=== PATIENT | male | born 1990 | race Hispanic/Latino ===

== ENCOUNTER 2016-08-19 23:50 | Emergency (ER) | payer SELFPAY ==
[2016-08-20 00:29] VITALS: BP 147/98
[2016-08-20] MEDS ORDERED: NORCO 7.5/325 PO ONE (07:31)
[2016-08-20] MEDS ORDERED: TORADOL IM ONE (07:31)
[2016-08-20] MEDS ORDERED: XYLOCAINE 1% MPF 5 mL INFILTRATI ONE (08:38)
--- NOTE | 2016-08-20 08:48 | XRay Report ---
RIGHT FOOT, 3 views: History: Swelling, ingrown toenail, pain. There is moderate nonspecific soft tissue swelling of the left great toe. No soft tissue gas or foreign body is identified. There is normal bone mineralization. No fracture, bony destruction or joint pathology is appreciated. IMPRESSION: Nonspecific soft tissue swelling of the left great toe.
[2016-08-20] MEDS ORDERED: POLYSPORIN TP ONE (08:55)
[2016-08-20] MEDS ORDERED: TRIPLE ANTIBIOTIC TP ONE (09:22)
--- NOTE | 2016-08-20 09:39 | Emergency Department Report ---
Abscess Boil HPI - HPI Chief Complaint: Skin/Abscess/Foreign Body Stated Complaint: BOIL RT ARM, RIGHT GREAT TOE PAIN Duration: 3 Days Location: Upper Extremity (right forearm) History: Yes Pain, Yes Purulent Drainage, No Fever, No Numbness, No Foreign Body , No Previous History, No Insect Bite HPI: 26 year old male presents to ED with right forearm abscess (2cm) and right great toe pain. patient denies trauma to foot. patient is stable, neurologically intact and in no acute distress. Home Medications: Previous Rx's Medication Instructions Recorded Last Taken Type Fluconazole [Diflucan TAB] 100 mg PO QDAY #7 tablet 08/20/16 Unknown Rx Sulfamethoxazole/Trimethoprim 1 each PO BID #20 tablet 08/20/16 Unknown Rx [Bactrim DS TAB] Allergies/Adverse Reactions: Allergies Allergy/AdvReac Type Severity Reaction Status Date / Time No Known Allergies Allergy Verified 08/20/16 08:00 ED Review of Systems ROS: Stated complaint: BOIL RT ARM, RIGHT GREAT TOE PAIN Other details as noted in HPI Constitutional: denies: chills, fever Eyes: denies: eye pain, eye discharge, vision change ENT: denies: ear pain, throat pain Respiratory: denies: cough, shortness of breath, wheezing Cardiovascular: denies: chest pain, palpitations Endocrine: no symptoms reported Gastrointestinal: denies: abdominal pain, nausea, diarrhea Genitourinary: denies: urgency, dysuria Musculoskeletal: arthralgia (right great toe pain). denies: back pain, joint swelling Skin: other (right forearm abscess). denies: rash, lesions Neurological: denies: headache, weakness, paresthesias Psychiatric: denies: anxiety, depression Hematological/Lymphatic: denies: easy bleeding, easy bruising ED Past Medical Hx - Past Medical History Additional medical history: HEPATITIS - Medications Home Medications: Home Medications Medication Instructions Recorded Confirmed Last Taken Type Fluconazole [Diflucan TAB] 100 mg PO QDAY #7 tablet 08/20/16 Unknown Rx Sulfamethoxazole/Trimethoprim 1 each PO BID #20 tablet 08/20/16 Unknown Rx [Bactrim DS TAB] ED Abscess Boil Physical Exam - Exam General: Vital signs noted. No distress. Alert and acting appropriately. Size: 2 cm Exam: Yes Tenderness, Yes Normal Neurologic Exam, Yes Normal Circulation, No Fluctuance, No Surrounding Cellulites/Erythema, No Lymphangitis, No Crepitation , No Heart Murmur Exam: 2cm right forearm abscess present. purulent drainage present where patient attempted to I&D at home prior to ED visit. minimal swelling present over right great toe. patient has minimal discoloration of nail bed and minimal purulent drainage under lateral side nail bed. I & D Note - I & D Note I & D Note: patient right forearm prepped with betadine. 5ccs of lido without epi injected at site of abscess. moderate amount of purulent drainage obtained. patient tolerated procedure well. packing applied to inside of wound. bacitracin and gauze applied. bleeding well controlled. ED Course Vital Signs 08/20/16 08/20/16 00:20 09:28 Temperature 98.8 F Pulse Rate 110 H 84 Respiratory 18 16 Rate Blood Pressure 147/98 O2 Sat by Pulse 100 100 Oximetry Critical care attestation.: If time is entered above; I have spent that time in minutes in the direct care of this critically ill patient, excluding procedure time. ED Medical Decision Making - Radiology Data Radiology results: report reviewed XR right foot normal study per radiologist. - Medical Decision Making 26 year old male tolerated I&D well. patient will return within 2-3 days for recheck. ED Disposition Clinical Impression: Onychomycosis of left great toe, Abscess of arm, right Disposition: DC-01 TO HOME OR SELFCARE Is pt being admited?: No Does the pt Need Aspirin: No Condition: Stable Instructions: Abscess Incision and Drainage (ED) Additional Instructions: Please return to ED or urgent care within 2-3 days for I&D recheck. Prescriptions: Fluconazole [Diflucan TAB] 100 mg PO QDAY #7 tablet Sulfamethoxazole/Trimethoprim [Bactrim DS TAB] 1 each PO BID #20 tablet Referrals: AMY SALOMON MD [Staff Physician] - 3-5 Days Forms: Work/School Release Form(ED)
== END 2016-08-20 09:33 | disposition home or self-care (01) ==
LOC: ED 23:50
DX: L02.413 Cutaneous abscess of right upper limb (principal); B35.1 Tinea unguium; Z86.19 Personal history of other infectious and parasitic diseases
CPT/HCPCS: 10060; 73630; 82962; 96372; 99283; J1885; A6250

== ENCOUNTER 2016-08-23 18:16 | Emergency (ER) | payer SELFPAY ==
--- NOTE | 2016-08-23 18:44 | Emergency Department Report ---
Suture/Staple Removal - HPI Chief Complaint: Laceration/Recheck/Suture Stated Complaint: RT ARM FOLLOW UP Time Seen by Provider: 08/23/16 18:40 When Sutures or Ninole Placed: 3 Wound Location: R FA ED Review of Systems ROS: Stated complaint: RT ARM FOLLOW UP Other details as noted in HPI Comment: All other systems reviewed and negative Constitutional: denies: chills, fever Gastrointestinal: denies: abdominal pain, nausea, vomiting Musculoskeletal: other (pt states R fa pain has decreased, rates pain 4/10. ) Skin: change in color (pt states his fa was red, now skin is pink ) ED Past Medical Hx - Past Medical History Additional medical history: HEPATITIS - Surgical History Past Surgical History?: No - Social History Smoking Status: Former Smoker Substance Use Type: None - Medications Home Medications: Home Medications Medication Instructions Recorded Confirmed Last Taken Type Fluconazole [Diflucan TAB] 100 mg PO QDAY #7 tablet 08/20/16 Unknown Rx Sulfamethoxazole/Trimethoprim 1 each PO BID #20 tablet 08/20/16 Unknown Rx [Bactrim DS TAB] Cephalexin [Keflex] 500 mg PO Q6HR #40 capsule 08/23/16 Unknown Rx Suture Removal Exam - Exam General: Vital signs noted. No distress. Alert and acting appropriately. Wound: Yes Pathologic Erythema, Yes Tenderness, No Drainage, No Pus, No Wound Dehiscence Other Systems: All other systems reviewed and are unremarkable. I and D site has no packing in place. Site is ttp but no fluctuate area palpable. sounding skin has mild erythema but per pt, this is improving. ED Course Vital Signs 08/23/16 18:19 Temperature 98.4 F Pulse Rate 114 H Respiratory 18 Rate Blood Pressure 143/101 O2 Sat by Pulse 100 Oximetry - Reevaluation(s) Reevaluation #1: 08/23/16 18:43 No packing to remove. PT states his surrounding redness has decreased. Will add Keflex to cover for strep. - Pulse Oximetry Interpretation Digit-Finger Initial Pulse Oximetry Readin Actions Taken: none ED Recheck MDM - Differential Diagnosis Wound Recheck, Cellultitis Recheck, Cutananeous Abscess reche Critical Care Time: No Critical care attestation.: If time is entered above; I have spent that time in minutes in the direct care of this critically ill patient, excluding procedure time. ED Disposition Clinical Impression: Abscess of arm, right Disposition: DC-01 TO HOME OR SELFCARE Is pt being admited?: No Does the pt Need Aspirin: No Condition: Stable Instructions: Cellulitis (ED), Abscess (ED) Additional Instructions: Continue Bactrim. Warm compresses to R arm at least 4 times a day Refrain from smoking - delays healing Return to the ED in 2 days for recheck Return sooner if you develop fevers, chills, nausea, vomiting, redness streaks up your arm or your pain worsens. Prescriptions: Cephalexin [Keflex] 500 mg PO Q6HR #40 capsule Referrals: LOUIS MONTELONGO MD [Staff Physician] - 3-5 Days Time of Disposition: 18:46
[2016-08-23 18:57] VITALS: BP 127/88
== END 2016-08-23 19:06 | disposition home or self-care (01) ==
LOC: ED 18:16
DX: L02.413 Cutaneous abscess of right upper limb (principal); Z87.891 Personal history of nicotine dependence; Z86.19 Personal history of other infectious and parasitic diseases
CPT/HCPCS: 99282

== ENCOUNTER 2016-09-26 17:38 | Emergency (ER) | payer SELFPAY ==
[2016-09-26 18:09] VITALS: BP 131/71
--- NOTE | 2016-09-26 19:18 | XRay Report ---
FINAL REPORT EXAM: XR TOE(S) 2+V RT HISTORY: Injured right big toe in fall TECHNIQUE: AP, lateral, and oblique views of the right toes PRIORS: None. FINDINGS: There is no evidence for acute fracture or dislocation. Generalized soft tissue swelling of the great toe is noted. No radiopaque foreign bodies are seen. Bony mineralization is normal and joint spaces are maintained. IMPRESSION: No acute bony abnormality noted. Soft tissue swelling of the great toe.
--- NOTE | 2016-09-26 20:19 | Emergency Department Report ---
HPI - General Chief Complaint: Extremity Injury, Lower Time Seen by Provider: 09/26/16 20:07 - HPI HPI: Patient is a 26-year-old male presents to ED complaining of right fifth toe injury earlier today. Patient states he jumped out of the bed and hit his right told that he noticed some bleeding and swelling shortly afterwards she'll be to. He denies loss of sensation on the big toe. Associates mild pain with pressure applied. Denies fever/chills/ vomiting or abdominal pain Medication and allergies ED Past Medical Hx - Past Medical History Previous Medical History?: No Additional medical history: HEPATITIS - Surgical History Past Surgical History?: Yes Additional Surgical History: [place] teeth - Social History Smoking Status: Never Smoker Substance Use Type: None - Medications Home Medications: Home Medications Medication Instructions Recorded Confirmed Last Taken Type Fluconazole [Diflucan TAB] 100 mg PO QDAY #7 tablet 08/20/16 Unknown Rx Sulfamethoxazole/Trimethoprim 1 each PO BID #20 tablet 08/20/16 Unknown Rx [Bactrim DS TAB] Cephalexin [Keflex] 500 mg PO Q6HR #40 capsule 08/23/16 Unknown Rx Cyclobenzaprine [Flexeril 10 MG 10 mg PO QHS #24 tablet 09/26/16 Unknown Rx TAB] Ibuprofen [Motrin 800 MG tab] 800 mg PO TID #40 tablet 09/26/16 Unknown Rx ED Review of Systems ROS: Stated complaint: RT FOOT BIG TOE LACERATION Other details as noted in HPI Constitutional: denies: chills, fever Eyes: denies: eye pain, eye discharge, vision change ENT: denies: ear pain, throat pain Respiratory: denies: cough, shortness of breath, wheezing Cardiovascular: denies: chest pain, palpitations Endocrine: no symptoms reported Gastrointestinal: denies: abdominal pain, nausea, diarrhea Genitourinary: denies: urgency, dysuria Musculoskeletal: denies: back pain, joint swelling, arthralgia Skin: denies: rash, lesions, pruritus Neurological: denies: headache, weakness, numbness, paresthesias Psychiatric: denies: anxiety, depression Hematological/Lymphatic: denies: easy bleeding, easy bruising Physical Exam - Physical Exam Vital Signs: Vital Signs 09/26/16 18:06 Temperature 98.6 F Pulse Rate 89 Blood Pressure 131/71 O2 Sat by Pulse 100 Oximetry Physical Exam: GENERAL: Alert and oriented x3, no apparent distress, Normal Gait, atraumatic. HEAD: Head is normocephalic and a-traumatic. EYES: Extra ocular muscles are intact. Pupils are equal, round, and reactive to light and accommodation. NECK: Supple. Non edematous, No lymphadenopathy or thyromegaly. No C-spine tenderness LUNGS: Symetrical with respiration, No wheezing, no rales or crackles, CTAB. HEART: S1, S2 present, regular rate and rhythm without murmur, no rubs, no gallops. Non tender to palpation EXTREMITIES/MUSCULOSKELETAL: No cyanosis, clubbing, rash, lesions or edema. Full ROM bilaterally. UE/LE Pulses 2+ bilaterally. Right big toe is swollen, tender to palpation, erythematous, no active bleeding for range of motion no other active bleeding or lacerations. NEUROLOGIC: The patient is cooperative with no focal neurologic deficits. Cranial nerves II through XII are grossly intact. Normal speech. PSYCHIATRIC: Mood is congruent with affect, denies suicidal or homicidal ideations. SKIN: Warm and dry, No lesions, No ulceration or induration present. ED Course Vital Signs 09/26/16 18:06 Temperature 98.6 F Pulse Rate 89 Blood Pressure 131/71 O2 Sat by Pulse 100 Oximetry ED Medical Decision Making - Medical Decision Making 26-year-old male presents with right toe injury ED course. Patient received 1 tablet of [place], Motrin, Flexeril for pain X-ray of the foot obtained. X-ray shows no acute fracture noted dislocation, minimal tissue swelling Discussed findings with patient. That was soaked in Betadine and water, cleaned, applied topical triple antibiotic and sterilely draped. Discussed the patient will follow up with primary care physician in 3-5 days Vital signs are normal patient is in no acute distress. Critical care attestation.: If time is entered above; I have spent that time in minutes in the direct care of this critically ill patient, excluding procedure time. ED Disposition Clinical Impression: Injury of right great toe Qualifiers: Encounter type: initial encounter Qualified Code(s): S99.921A - Unspecified injury of right foot, initial encounter Disposition: - TO HOME OR SELFCARE Is pt being admited?: No Does the pt Need Aspirin: No Condition: Stable Instructions: Arthralgia (ED), Abrasion (ED) Additional Instructions: Keep up the foot elevated Particular medication prescribed Follow-up with primary care physician X-rays are negative no fractures or dislocations. Continue to apply Neosporin topically to the abrasion Prescriptions: Cyclobenzaprine [Flexeril 10 MG TAB] 10 mg PO QHS #24 tablet Ibuprofen [Motrin 800 MG tab] 800 mg PO TID #40 tablet Referrals: PRIMARY CARE, [Primary Care Provider] - 3-5 Days [facility] [Outside] - 3-5 Days [facility] [Outside] - 3-5 Days [facility] [Outside] - 3-5 Days Forms: Work/School Release Form Time of Disposition: 20:50
[2016-09-26] MEDS ORDERED: MOTRIN PO ONE (20:41)
[2016-09-26] MEDS ORDERED: FLEXERIL PO ONE (20:41)
[2016-09-26] MEDS ORDERED: TRIPLE ANTIBIOTIC TP ONE (21:20)
[2016-09-26] MEDS ORDERED: TRIPLE ANTIBIOTIC TP SCH (21:30)
[2016-09-26] MEDS ORDERED: NORCO 5/325 PO ONE (21:50)
[2016-09-27] MEDS ORDERED: TRIPLE ANTIBIOTIC TP SCH (08:00)
== END 2016-09-26 22:08 | disposition home or self-care (01) ==
LOC: ED 17:38
DX: S99.921A Unspecified injury of right foot, initial encounter (principal); W13.8XXA Fall from, out of or through other building or structure, initial encounter; Y93.89 Activity, other specified; Y92.89 Other specified places as the place of occurrence of the external cause; Y99.8 Other external cause status
CPT/HCPCS: 99283; A6250

== ENCOUNTER 2017-10-16 08:23 | Emergency (ER) | payer SELFPAY ==
[2017-10-16 08:38] VITALS: BP 118/67
--- NOTE | 2017-10-16 09:25 | Emergency Department Report ---
ED Extremity Problem HPI - General Chief complaint: Extremity Problem,Nontraumatic Stated complaint: INGROWN TOENAIL Time Seen by Provider: 10/16/17 09:17 Source: patient Mode of arrival: Ambulatory Limitations: No Limitations - History of Present Illness Initial comments: Patient is a 27-year-old male who is presenting with bilateral great toe pain. Patient states had an ingrown toenail for quite some time but states that the pains got worse over the last several weeks. Patient states he has some purulent drainage from around the toenail. Patient states pain is 8 out of 10 in severity. Patient denies any fevers chills nausea vomiting at this time. - Related Data Previous Rx's Medication Instructions Recorded Last Taken Type Fluconazole [Diflucan TAB] 100 mg PO QDAY #7 tablet 08/20/16 Unknown Rx Sulfamethoxazole/Trimethoprim 1 each PO BID #20 tablet 08/20/16 Unknown Rx [Bactrim DS TAB] cephALEXin [Keflex] 500 mg PO Q6HR #40 capsule 08/23/16 Unknown Rx Cyclobenzaprine [Flexeril 10 MG 10 mg PO QHS #24 tablet 09/26/16 Unknown Rx TAB] Ibuprofen [Motrin 800 MG tab] 800 mg PO TID #40 tablet 09/26/16 Unknown Rx Clindamycin [Clindamycin CAP] 300 mg PO Q8H 7 Days cap 10/16/17 Unknown Rx Ibuprofen [Motrin] 800 mg PO Q8HR PRN #20 tablet 10/16/17 Unknown Rx Allergies Allergy/AdvReac Type Severity Reaction Status Date / Time No Known Allergies Allergy Verified 09/26/16 18:06 ED Review of Systems ROS: Stated complaint: INGROWN TOENAIL Other details as noted in HPI Comment: All other systems reviewed and negative ED Past Medical Hx - Past Medical History Previous Medical History?: Yes Additional medical history: HEPATITIS C - Surgical History Past Surgical History?: Yes Additional Surgical History: [place] teeth - Social History Smoking Status: Former Smoker Substance Use Type: None - Medications Home Medications: Home Medications Medication Instructions Recorded Confirmed Last Taken Type Fluconazole [Diflucan TAB] 100 mg PO QDAY #7 tablet 08/20/16 Unknown Rx Sulfamethoxazole/Trimethoprim 1 each PO BID #20 tablet 08/20/16 Unknown Rx [Bactrim DS TAB] cephALEXin [Keflex] 500 mg PO Q6HR #40 capsule 08/23/16 Unknown Rx Cyclobenzaprine [Flexeril 10 MG 10 mg PO QHS #24 tablet 09/26/16 Unknown Rx TAB] Ibuprofen [Motrin 800 MG tab] 800 mg PO TID #40 tablet 09/26/16 Unknown Rx Clindamycin [Clindamycin CAP] 300 mg PO Q8H 7 Days cap 10/16/17 Unknown Rx Ibuprofen [Motrin] 800 mg PO Q8HR PRN #20 tablet 10/16/17 Unknown Rx ED Physical Exam - General Limitations: No Limitations General appearance: alert, in no apparent distress - Head Head exam: Present: atraumatic, normocephalic - Eye Eye exam: Present: normal appearance - ENT ENT exam: Present: mucous membranes moist - Neck Neck exam: Present: normal inspection - Respiratory Respiratory exam: Present: normal lung sounds bilaterally. Absent: respiratory distress - Cardiovascular Cardiovascular Exam: Present: regular rate, normal rhythm. Absent: systolic murmur, diastolic murmur, rubs, gallop - GI/Abdominal GI/Abdominal exam: Present: soft, normal bowel sounds - Rectal Rectal exam: Present: deferred - Extremities Exam Extremities exam: Present: normal inspection, other (patient's bilateral great toes showed normal appearing nails however the area of the toe surrounding nail shows some erythema and swelling consistent with cellulitis. There is no fluctuance.) - Back Exam Back exam: Present: normal inspection - Neurological Exam Neurological exam: Present: alert, oriented X3 - Psychiatric Psychiatric exam: Present: normal affect, normal mood - Skin Skin exam: Present: warm, dry, intact, normal color. Absent: rash ED Course Vital Signs 10/16/17 08:28 Temperature 97.6 F Pulse Rate 55 L Blood Pressure 118/67 O2 Sat by Pulse 98 Oximetry ED Medical Decision Making - Medical Decision Making Patient was started on antibiotics and given podiatry for follow-up Critical care attestation.: If time is entered above; I have spent that time in minutes in the direct care of this critically ill patient, excluding procedure time. ED Disposition Clinical Impression: Cellulitis, toe Qualifiers: Laterality: unspecified laterality Qualified Code(s): L03.039 - Cellulitis of unspecified toe Disposition: DC- TO HOME OR SELFCARE Is pt being admited?: No Does the pt Need Aspirin: No Condition: Stable Instructions: Cellulitis (ED) Referrals: RIGOBERTO HARDIN DPM [Staff Physician] - 3-5 Days Time of Disposition: 09:26
== END 2017-10-16 09:35 | disposition home or self-care (01) ==
LOC: ED 08:23
DX: L03.032 Cellulitis of left toe (principal); L03.031 Cellulitis of right toe; Z86.19 Personal history of other infectious and parasitic diseases; Z87.891 Personal history of nicotine dependence
CPT/HCPCS: 99282

== ENCOUNTER 2017-11-08 10:56 | Emergency (ER) | payer SELFPAY ==
[2017-11-08 11:10] VITALS: BP 117/73
--- NOTE | 2017-11-08 13:38 | Emergency Department Report ---
ED Lower Extremity HPI - General Chief Complaint: Extremity Injury, Lower Stated Complaint: INGROWN TOENAIL INFECTED Time Seen by Provider: 11/08/17 12:47 Source: patient Mode of arrival: Ambulatory Limitations: No Limitations - History of Present Illness Initial Comments: 27-year-old male ingrown toenail 2 months. Reports to ED today with complaints worsening pain, redness, swelling at the site. Patient reports mild purulent discharge at times. Denies fever. States has not been on antibiotics for this condition MD Complaint: other (left great toe) -: Gradual, month(s) (2) Severity: moderate Improves With: nothing Worsens With: weight bearing, palpation Context: other (ingrown toenail) Associated Symptoms: swelling - Related Data Previous Rx's Medication Instructions Recorded Last Taken Type Fluconazole [Diflucan TAB] 100 mg PO QDAY #7 tablet 08/20/16 Unknown Rx Sulfamethoxazole/Trimethoprim 1 each PO BID #20 tablet 08/20/16 Unknown Rx [Bactrim DS TAB] cephALEXin [Keflex] 500 mg PO Q6HR #40 capsule 08/23/16 Unknown Rx Cyclobenzaprine [Flexeril 10 MG 10 mg PO QHS #24 tablet 09/26/16 Unknown Rx TAB] Ibuprofen [Motrin 800 MG tab] 800 mg PO TID #40 tablet 09/26/16 Unknown Rx Clindamycin [Clindamycin CAP] 300 mg PO Q8H 7 Days cap 10/16/17 Unknown Rx Ibuprofen [Motrin] 800 mg PO Q8HR PRN #20 tablet 10/16/17 Unknown Rx Cephalexin [Keflex] 500 mg PO BID #20 capsule 11/08/17 Unknown Rx Naproxen [Naprosyn] 500 mg PO BID #20 tablet 11/08/17 Unknown Rx Sulfamethoxazole/Trimethoprim 1 each PO BID #20 tablet 11/08/17 Unknown Rx [Bactrim DS TAB] Allergies Allergy/AdvReac Type Severity Reaction Status Date / Time No Known Allergies Allergy Verified 09/26/16 18:06 ED Review of Systems ROS: Stated complaint: INGROWN TOENAIL INFECTED Other details as noted in HPI Comment: All other systems reviewed and negative Constitutional: denies: fever Gastrointestinal: denies: nausea, vomiting Skin: as per HPI ED Past Medical Hx - Past Medical History Previous Medical History?: Yes Additional medical history: HEPATITIS C - Surgical History Past Surgical History?: Yes Additional Surgical History: [place] teeth - Social History Smoking Status: Never Smoker Substance Use Type: None - Medications Home Medications: Home Medications Medication Instructions Recorded Confirmed Last Taken Type Fluconazole [Diflucan TAB] 100 mg PO QDAY #7 tablet 08/20/16 Unknown Rx Sulfamethoxazole/Trimethoprim 1 each PO BID #20 tablet 08/20/16 Unknown Rx [Bactrim DS TAB] cephALEXin [Keflex] 500 mg PO Q6HR #40 capsule 08/23/16 Unknown Rx Cyclobenzaprine [Flexeril 10 MG 10 mg PO QHS #24 tablet 09/26/16 Unknown Rx TAB] Ibuprofen [Motrin 800 MG tab] 800 mg PO TID #40 tablet 09/26/16 Unknown Rx Clindamycin [Clindamycin CAP] 300 mg PO Q8H 7 Days cap 10/16/17 Unknown Rx Ibuprofen [Motrin] 800 mg PO Q8HR PRN #20 tablet 10/16/17 Unknown Rx Cephalexin [Keflex] 500 mg PO BID #20 capsule 11/08/17 Unknown Rx Naproxen [Naprosyn] 500 mg PO BID #20 tablet 11/08/17 Unknown Rx Sulfamethoxazole/Trimethoprim 1 each PO BID #20 tablet 11/08/17 Unknown Rx [Bactrim DS TAB] ED Physical Exam - General Limitations: No Limitations General appearance: alert, in no apparent distress - Head Head exam: Present: atraumatic, normocephalic - Eye Eye exam: Present: normal appearance - ENT ENT exam: Present: mucous membranes moist - Neck Neck exam: Present: normal inspection - Respiratory Respiratory exam: Present: normal lung sounds bilaterally. Absent: respiratory distress - Cardiovascular Cardiovascular Exam: Present: regular rate, normal rhythm - Extremities Exam Extremities exam: Present: normal capillary refill, other (left great toe w/ swelling and erythema on lateral aspect with ingrown nail present on that side; tender to palpation; no purulent discharge present; no swelling to the foot; no tracking of erythema; no lower wxtremity swelling) - Neurological Exam Neurological exam: Present: alert, oriented X3 - Skin Skin exam: Present: warm, dry, normal color ED Course Vital Signs 11/08/17 11:06 Temperature 98.4 F Pulse Rate 82 Respiratory 16 Rate Blood Pressure 117/73 O2 Sat by Pulse 98 Oximetry ED Lower Extremity MDM - Medical Decision Making 27-year-old male with infected ingrown toenail. Vital signs normal. Will prescribe antibiotics and referred to screen repairer crusher. - Differential Diagnosis cellulitis, ingrown toenail Critical care attestation.: If time is entered above; I have spent that time in minutes in the direct care of this critically ill patient, excluding procedure time. ED Disposition Clinical Impression: Cellulitis of toe, left, Ingrown left big toenail Disposition: TO HOME OR SELFCARE Is pt being admited?: No Condition: Stable Instructions: Cellulitis (ED) Additional Instructions: Return to ER if you experience fever, worsening pain or swelling, or migration of the redness. Prescriptions: Cephalexin [Keflex] 500 mg PO BID #20 capsule Naproxen [Naprosyn] 500 mg PO BID #20 tablet Sulfamethoxazole/Trimethoprim [Bactrim DS TAB] 1 each PO BID #20 tablet Referrals: [facility] [Provider Group] - 3-5 Days [facility] [Outside] - 3-5 Days TYSHAWN CASTILLO MD [Staff Physician] - 3-5 Days RIGOBERTO HARDIN DPM [Staff Physician] - 3-5 Days RANDALL AVILEZ DPM [Referring] - 3-5 Days Time of Disposition: 13:44
== END 2017-11-08 13:58 | disposition home or self-care (01) ==
LOC: ED 10:56
DX: L60.0 Ingrowing nail (principal); Z86.19 Personal history of other infectious and parasitic diseases
CPT/HCPCS: 99282